=== PATIENT | female | born 1990 | race Two or more races ===

== ENCOUNTER 2025-01-09 14:17 | Emergency (ER) | payer OTHER ==
[~2025-01-09] VITALS: Ht 149.9 cm; Wt 55.4 kg
[2025-01-09 14:31] VITALS: TEMP 98.3
[2025-01-09 15:04] LABS: BASOPHILS % (AUTO) 0.8 % (0.0-2.0); EOSINOPHILS % (AUTO) 2.5 % (1.0-6.0); HEMOGLOBIN 13.4 g/dL (12.0-16.0); LYMPHOCYTES # (AUTO) 2.1 K/uL (1.0-4.8); LYMPHOCYTES % (AUTO) 38.4 % (22.0-44.0); MEAN CORPUSCULAR HEMOGLOBIN 30.5 pg (26.0-34.0); MEAN CORPUSCULAR HGB CONC 33.6 G/dL (31.0-37.0); MEAN CORPUSCULAR VOLUME 91 fL (80-100); MONOCYTES # (AUTO) 0.3 K/uL (0.1-1.0); MONOCYTES % (AUTO) 5.8 % (2.0-9.0); NEUTROPHILS # (AUTO) 2.8 K/uL (1.8-7.7); NEUTROPHILS % (AUTO) 52.5 % (40.0-70.0); PLATELET COUNT (AUTO) 290 K/uL (150-450); RED CELL DISTRIBUTION WIDTH 12.4 % (11.5-14.5); WHITE BLOOD COUNT (AUTO) 5.4 K/uL (4.5-11.0)
[2025-01-09 15:15] LABS: ANION GAP 6 mmol/L (8-16); CALCIUM, TOTAL 8.9 mg/dL (8.8-10.5); CARBON DIOXIDE 30 mmol/L (22-29); CHLORIDE 102 mmol/L (98-107); CREATININE 0.78 mg/dL (0.60-1.30); GLOMERULAR FILTR. RATE CALC > 60 mL/min (>60); GLUCOSE,RANDOM 113 mg/dL (70-110); POTASSIUM 3.7 mmol/L (3.5-5.1); SODIUM SERUM 138 mmol/L (136-145); UREA NITROGEN, BLOOD 8 mg/dL (7-18)
[2025-01-09 16:59] VITALS: BP 153/93; PULSE 72; RESP 18; O2SAT 97
[2025-01-09] MEDS ORDERED: IBUP-1554 PO (17:18)
[2025-01-09] MEDS ORDERED: ACET-66 PO (17:18)
[2025-01-09] MEDS: ACETAMINOPHEN 500 MG TABLET PO ONE (17:30)
[2025-01-09] MEDS: IBUPROFEN 600 MG TABLET PO ONE (17:30)
== END 2025-01-09 17:56 | disposition home or self-care (01) ==
LOC: EMS 14:41
DX: G44.209 Tension-type headache, unspecified, not intractable (principal)
CPT/HCPCS: 80048; 84703; 85025; 99282